=== PATIENT | male | born 1970 | race African-American/Black ===

== ENCOUNTER 2016-10-02 18:09 | Emergency (ER) | payer SELFPAY ==
[~2016-10-02] VITALS: Ht 175.3 cm; Wt 74.8 kg
[~2016-10-02 18:09] MED LIST: NKM; PRILOSEC OTC20 MG ORAL
[2016-10-02] MEDS ORDERED: NKM (18:33)
[2016-10-02] MEDS ORDERED: Lidocaine 2% Visc 15ml soln ORAL ONE (19:00)
[2016-10-02] MEDS ORDERED: Dicyclomine HCl 10mg/5ml oral soln ORAL ONE (19:00)
[2016-10-02] MEDS ORDERED: Mylanta II UD 30ml ORAL ONE (19:00)
[2016-10-02 19:13] LABS: BASOPHILS % (AUTO) 1.4 % (0.0-2.0); EOSINOPHILS % (AUTO) 0.6 % (0.0-3.0); LYMPHOCYTES % (AUTO) 25.3 % (20.0-45.0); MEAN CORPUSCULAR HEMOGLOBIN 31.4 PG (27.0-31.0); MEAN CORPUSCULAR HGB CONC 34.4 G/DL (32.0-36.0); MEAN CORPUSCULAR VOLUME 91 FL (80-99); MEAN PLATELET VOLUME 5.5 FL (6.5-10.1); MONOCYTES % (AUTO) 6.9 % (1.0-10.0); NEUTROPHILS % (AUTO) 65.9 % (45.0-75.0); PLATELET COUNT 233 K/UL (150-450); RED BLOOD COUNT 5.15 M/UL (4.70-6.10); RED CELL DISTRIBUTION WIDTH 12.2 % (11.6-14.8); WHITE BLOOD COUNT 8.4 K/UL (4.8-10.8)
[2016-10-02 19:49] LABS: ALANINE AMINOTRANSFERASE 18 U/L (3-41); ALBUMIN/GLOBULIN RATIO 1.2 (1.0-2.7); ANION GAP 18 (5-15); ASPARTATE AMINO TRANSFERASE 23 U/L (5-40); CALCIUM 9.2 mg/dL (8.6-10.2); CARBON DIOXIDE 23 mEQ/L (20-30); CHLORIDE 99 mEQ/L (98-107); CREATININE 1.2 mg/dL (0.7-1.2); GLOMERULAR FILTRATION RATE > 60 mL/min (>60); HEMOLYSIS 37; LIPASE 11 U/L (< 60); POTASSIUM 3.7 mEQ/L (3.4-4.9); SODIUM 140 mEQ/L (135-145); TOTAL PROTEIN 7.5 g/dL (6.6-8.7)
[2016-10-02] MEDS ORDERED: ZOFRAN4 M3 ORAL (20:34)
[2016-10-02] MEDS ORDERED: OMEPRAZOLE20 M2 ORAL (20:34)
[2016-10-02] MEDS ORDERED: PEPCID40 MG PO (20:34)
[2016-10-02 20:41] VITALS: BP 112/60
--- NOTE | 2016-10-03 09:26 | Diagnostic Imaging Report ---
Indication: PAIN Technique: XRAY ABDOMEN 1VIEW/KUB Comparison: None. Findings: The bowel gas pattern is nonobstructive. The bones are unremarkable. No free fluid. No gross free air. Impression: Negative abdomen.
--- NOTE | 2016-10-04 12:16 | Emergency Room Report ---
History of Present Illness General Chief Complaint: Vomiting Source: Patient Present Illness [facility] The patient is a 46-year-old male with a history of GERD presenting for mid upper abdominal pain nausea, vomiting, and constipation. Pain is described as a 6/10 dull ache to the mid upper abdomen and occasionally radiates to the mid chest. Patient does admit to an occasional burning sensation. Pain is constant with no known provoking factors. He has not taken any medications for this. The patient states last bowel movement was yesterday and was difficult to pass. He also admits to increased flatulence. He denies any sick contacts or recent travel. He denies any other symptoms including fever, chills, diarrhea, headache, chest pain, shortness of breath, dizziness Allergies: Coded Allergies: No Known Allergies (Unverified , 04/07/16) Patient History Past Medical History: see triage record, GERD Pertinent Family History: none Reviewed Nursing Documentation: PMH: Agreed, PSxH: Agreed Nursing Documentation-PMH Past Medical History: No Stated History Review of Systems All Other Systems: negative except mentioned in HPI Physical Exam Vital Signs Date Time Temp Pulse Resp B/P Pulse Ox O2 Delivery O2 Flow Rate FiO2 10/02/16 18:27 97.9 71 14 127/81 97 Room Air Sp02 EP Interpretation: reviewed, normal General Appearance: no apparent distress, alert, GCS 15, non-toxic Head: normocephalic, atraumatic Eyes: bilateral eye PERRL, bilateral eye normal inspection ENT: hearing grossly normal, normal pharynx, no angioedema, normal voice Neck: full range of motion, supple/symm/no masses Respiratory: chest non-tender, lungs clear, normal breath sounds, speaking full sentences Cardiovascular #1: regular rate, rhythm, no edema Gastrointestinal: no mass, no guarding, abnormal bowel sounds - increased BS, tenderness - epigastric Genitourinary: normal inspection, no CVA tenderness Musculoskeletal: back normal, gait/station normal, normal range of motion, non- tender Neurologic: alert, oriented x3, responsive, motor strength/tone normal, sensory intact, speech normal Psychiatric: judgement/insight normal, memory normal, mood/affect normal, no suicidal/homicidal ideation Skin: normal color, no rash, warm/dry, well hydrated Lymphatic: no adenopathy Medical Decision Making PA Attestation Dr. Cisneros is my supervising physician. Patient management was discussed with my supervising physician Diagnostic Impression: Primary Impression: GERD (gastroesophageal reflux disease) Qualified Codes: K21.9 - Gastro-esophageal reflux disease without esophagitis Additional Impression: Gastroenteritis ER Course The patient is a 46-year-old male with a history of GERD presenting for mid upper abdominal pain nausea, vomiting, and constipation Differential diagnoses considered but not limited to: Gastroenteritis, GERD, gastritis, appendicitis, pancreatitis PE: Vitals WNL. NAD. Abdomen: Normal appearance. Non distended. No ecchymosis. Increased BS. + Epigastric TTP. No McBurney point tenderness. No guarding. No CVA tenderness Labs: CBC unremarkable CMP unremarkable Lipase unremarkable The patient is given a GI cocktail and Pepcid and is feeling better He will be SD'ed home and will FU with PMD. ER precautions given Laboratory Tests Test 10/02/16 18:51 White Blood Count 8.4 K/UL (4.8-10.8) Red Blood Count 5.15 M/UL (4.70-6.10) Hemoglobin 16.2 G/DL (14.2-18.0) Hematocrit 47.0 % (42.0-52.0) Mean Corpuscular Volume 91 FL (80-99) Mean Corpuscular Hemoglobin 31.4 PG (27.0-31.0) H Mean Corpuscular Hemoglobin Concent 34.4 G/DL (32.0-36.0) Red Cell Distribution Width 12.2 % (11.6-14.8) Platelet Count 233 K/UL (150-450) Mean Platelet Volume 5.5 FL (6.5-10.1) L Neutrophils (%) (Auto) 65.9 % (45.0-75.0) Lymphocytes (%) (Auto) 25.3 % (20.0-45.0) Monocytes (%) (Auto) 6.9 % (1.0-10.0) Eosinophils (%) (Auto) 0.6 % (0.0-3.0) Basophils (%) (Auto) 1.4 % (0.0-2.0) Sodium Level 140 mEQ/L (135-145) Potassium Level 3.7 mEQ/L (3.4-4.9) Chloride Level 99 mEQ/L (98-107) Carbon Dioxide Level 23 mEQ/L (20-30) Anion Gap 18 (5-15) H Blood Urea Nitrogen 15 mg/dL (7-23) Creatinine 1.2 mg/dL (0.7-1.2) Estimate Glomerular Filtration Rate > 60 mL/min (>60) Glucose Level 108 mg/dL (74-106) H Calcium Level 9.2 mg/dL (8.6-10.2) Total Bilirubin 0.6 mg/dL (0.0-1.2) Aspartate Amino Transferase (AST) 23 U/L (5-40) Alanine Aminotransferase (ALT) 18 U/L (3-41) Alkaline Phosphatase 56 U/L (40-129) Total Protein 7.5 g/dL (6.6-8.7) Albumin 4.2 g/dL (3.5-5.2) Globulin 3.3 g/dL Albumin/Globulin Ratio 1.2 (1.0-2.7) Lipase 11 U/L (< 60) Lab Results Impression All unremarkable Other X-Ray Diagnostic Results Other X-Ray Diagnostic Results : X-Ray Ordered: Abdomen Xray Date: Oct 04, 2016 EP Interpretation: Yes Findings: no fractures, no dislocation, no soft tissue swelling Number of Views: 1 PA Scribe Text I am acting as scribe for my supervising physician. My supervising physician's interpretation of the abd xrays is that it is unremarkable Last Vital Signs Date Time Temp Pulse Resp B/P Pulse Ox O2 Delivery O2 Flow Rate FiO2 10/02/16 20:41 98.1 59 17 112/60 98 Room Air Status: improved Disposition: HOME, SELF-CARE Condition: Improved Scripts Omeprazole (OMEPRAZOLE) 20 Mg Capsule. 20 MG ORAL DAILY, #30 CAP Prov: TERZIAN,ADEBAYO P.A. 10/02/16 Famotidine (PEPCID) 40 Mg Tablet 40 MG PO QHS, #7 TAB 0 Refills Prov: TERZIAN,ADEBAYO P.A. 10/02/16 Ondansetron* (ZOFRAN*) 4 Mg Tablet 4 MG ORAL Q6H Y for Nausea & Vomiting, #15 TAB Prov: TERZIAN,ADEBAYO P.A. 10/02/16 Patient Instructions: Viral Gastroenteritis, Adult, Indigestion, Food Choices for Gastroesophageal Reflux Disease, Child Additional Instructions: I discussed my findings with the patient. All questions and concerns have been answered. Treatment and medication compliance have been addressed. I advised the patient that they need to follow up with PMD in 3-5 days. Return to ED if symptoms worsen, new symptoms arise, or if needed for any reason. Patient verbalized understanding of discharge instructions. ADEBAYO CABRERA Oct 04, 2016 12:16
== END 2016-10-02 20:43 | disposition home or self-care (01) ==
LOC: EMR 19:05
DX: K52.9 Noninfective gastroenteritis and colitis, unspecified (principal); K21.9 Gastro-esophageal reflux disease without esophagitis
CPT/HCPCS: 36415; 74000; 80053; 83690; 85025; 96360; 96361; 96374; 99284; J2405